=== PATIENT | female | born 1990 | race Two or more races ===

== ENCOUNTER 2018-06-07 12:28 | Day surgery (SDC) | payer OTHER | END 2018-06-07 16:20 | disposition home or self-care (01) | LOC: CIR.AMB 12:28 | DX: K50.818 Crohn's disease of both small and large intestine with other complication (principal) ==

== ENCOUNTER 2019-09-08 22:22 | Emergency (ER) | payer OTHER ==
[~2019-09-08] VITALS: Ht 165.1 cm; Wt 101.2 kg
== END 2019-09-09 03:15 | disposition home or self-care (01) ==
LOC: ER 22:22
DX: O20.0 Threatened abortion (principal); Z34.01 Encounter for supervision of normal first pregnancy, first trimester

== ENCOUNTER → 2020-01-06 | Outpatient (CLI) | payer OTHER | END | disposition home or self-care (01) | LOC: PRENATAL 08:49 | PROVIDERS: ATTEND Obstetrics & Gynecology Maternal & Fetal Medicine | DX: O35.3XX0 Maternal care for (suspected) damage to fetus from viral disease in mother, not applicable or unspecified (principal); O99.212 Obesity complicating pregnancy, second trimester; Z36.89 Encounter for other specified antenatal screening ==

== ENCOUNTER 2020-04-19 02:42 | Inpatient (IN) | payer OTHER ==
[~2020-04-19] VITALS: Ht 165.1 cm; Wt 114.8 kg
[2020-04-20] MEDS ORDERED: PRENATAL + DHA1 EAC1 PO (08:00)
== END 2020-04-21 13:48 | disposition home or self-care (01) | DRG 807 ==
LOC: OBS/DEL 02:42 → LDR 05:53 → OB/GYN 05:53
PROVIDERS: ADMIT Specialist; ATTEND Specialist
PROC: 10E0XZZ Delivery of Products of Conception, External Approach (ICD-10-PCS; principal; 2020-04-19)
PROC: 4A1HXFZ Monitoring of Products of Conception, Cardiac Rhythm, External Approach (ICD-10-PCS; 2020-04-19)
PROC: 3E033VJ Introduction of Other Hormone into Peripheral Vein, Percutaneous Approach (ICD-10-PCS; 2020-04-19)
DX: O80 Encounter for full-term uncomplicated delivery (principal); Z37.0 Single live birth; Z3A.37 37 weeks gestation of pregnancy